=== PATIENT | male | born 1965 | race Caucasian/White ===

== ENCOUNTER 2025-02-20 11:04 | Outpatient (CLI) | payer OTHER, SELFPAY ==
--- NOTE | ~2025-02-20 | CT_ITS ---
EXAM/PROCEDURE: CTA chest HISTORY: Aneurysm of ascending aorta wo rupture COMPARISON: 02/04/2024 TECHNIQUE: Contrast-enhanced CT thoracic aortography performed. FINDINGS: 4.4 cm ascending thoracic aortic aneurysm unchanged in appearance with no dissection, ulceration or acute complication. The arch is left-sided and tapers to normal size. 3 vessels with normal configuration and patency at the arch. Descending aorta unremarkable. Heart size normal. Pulmonary arteries appear normal. Lungs are clear. No bulky lymphadenopathy or masses. Heart size normal. No significant pericardial effusion. No acute process seen in the visualized portions of the upper abdomen or extra thoracic soft tissues. Mild degenerative changes throughout the thoracic spine. IMPRESSION: Stable ascending aortic aneurysm with no complication. Reviewed, dictated and finalized at location A. [employer]
[2025-02-20 11:26] LABS: Estimated Glomerular Filt Rate > 60
== END 2025-02-20 11:05 | disposition home or self-care (01) ==
LOC: MICIMG 11:06
DX: I71.21 Aneurysm of the ascending aorta, without rupture (principal)
CPT/HCPCS: 71275; Q9967